=== PATIENT | female | born 1970 | race Caucasian/White ===

== ENCOUNTER 2025-01-10 09:09 | Outpatient (AMB) | payer SELFPAY ==
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
[2025-01-10 09:27] VITALS: BP 128/76; PULSE 58; O2SAT 99; BMI 31.8
--- OUTSIDE RECORDS SUMMARY | 2025-01-10 09:58 | XMS_ITS | Patient Health Record ---
Author Organization [facility] Address [address] [place] [address] Care Team Providers Care Impregnating Machine Operator Name Role Phone MEÑO GAYLE Primary Care Provider [phone] MinnaGordy moralescandido Unavailable [phone] NikolaiBarbara breweralissa Unavailable [phone] Allergies No Known Allergies Results Component Value Reference Range Notes Comp. Metabolic Panel [id number] Reviewed date:09/25/2024 07:40:29 AM Interpretation: Performing Lab:[facility], [address], Phone - [phone], Director - MDJodry Notes/Report: Glucose 86 70-99 mg/dL BUN 15 6-24 mg/dL Creatinine 0.71 0.57-1.00 mg/dL eGFR 102 >59 mL/min/1.73 BUN/Creatinine Ratio 21 9-23 Sodium 141 134-144 mmol/L Potassium 4.4 3.5-5.2 mmol/L Chloride 103 96-106 mmol/L Carbon Dioxide, Total 22 20-29 mmol/L Calcium 9.3 8.7-10.2 mg/dL Protein, Total 6.4 6.0-8.5 g/dL Albumin 4.5 3.8-4.9 g/dL Globulin, Total 1.9 1.5-4.5 g/dL Bilirubin, Total 0.3 0.0-1.2 mg/dL Alkaline Phosphatase 96 44-121 IU/L AST (SGOT) 15 0-40 IU/L Lipid Panel With LDL/HDL Rat [id number] Reviewed date:09/25/2024 07:40:20 AM Interpretation: Performing Lab:[facility], [address], Phone - [phone], Director - MDJodry Notes/Report: Cholesterol, Total 207 100-199 mg/dL Triglycerides 85 0-149 mg/dL HDL Cholesterol 53 >39 mg/dL VLDL Cholesterol Ehsan 15 5-40 mg/dL LDL Chol Calc ([facility]) 139 0-99 mg/dL LDL/HDL Ratio 2.6 0.0-3.2 ratio LDL/HDL Ratio Men Women 1/2 Avg.Risk 1.0 1.5 Avg.Risk 3.6 3.2 2X Avg.Risk 6.2 5.0 3X Avg.Risk 8.0 6.1 CBC with Diff, Platelet, NLR -[id number] Reviewed date:09/25/2024 07:40:00 AM Interpretation: Performing Lab:[facility], [address], [place], Phone - [phone], Director - Sabra Notes/Report: WBC 4.9 3.4-10.8 x10E3/uL RBC 4.67 3.77-5.28 x10E6/uL Hemoglobin 14.5 11.1-15.9 g/dL Hematocrit 46.2 34.0-46.6 % MCV 99 79-97 fL MCH 31.0 26.6-33.0 pg MCHC 31.4 31.5-35.7 g/dL RDW 13.6 11.7-15.4 % Platelets 284 150-450 x10E3/uL Neutrophils 57 Not Estab. % Lymphs 35 Not Estab. % Monocytes 5 Not Estab. % Eos 2 Not Estab. % Basos 1 Not Estab. % Neutrophils (Absolute) 2.7 1.4-7.0 x10E3/uL Lymphs (Absolute) 1.7 0.7-3.1 x10E3/uL Neut/Lymph Ratio 1.6 0.0-2.9 ratio Published COVID-19 studies suggest: Low likelihood of severe COVID-19 disease progression 0.0-2.9 High likelihood of severe COVID-19 disease progression >4.9 Monocytes(Absolute) 0.2 0.1-0.9 x10E3/uL Eos (Absolute) 0.1 0.0-0.4 x10E3/uL Baso (Absolute) 0.1 0.0-0.2 x10E3/uL Immature Granulocytes 0 Not Estab. % Immature Grans (Abs) 0.0 0.0-0.1 x10E3/uL Reason For Referral Reason screening colonoscop y Please evaluate and treat Diagnosis 1 Encounter for screen ing for malignant neoplasm of colon (Z12.11) Referral Organization [facility] Referring Provider First Name Kervin Referring Provider Last Name Chitra Referring Provider Speciality Internal M edicine Referred Provider Specialty Gastroentero logy General Notes Please call the iman ent to schedule the appointment, Encounter created and SMS sent to the pt.Elliot Charmain 09/15/2024 07:40:53 AM > Referral Priority Routine Medications Medication SIG (Take, Route, Fr equency, Duration) Notes Start Date End Date Status LORazepam 0.5 MG 1 tablet at bedtime as needed Orally Once a day; Duration: 90 days As needed 10/05/2024 Active Immunizations Vaccine Route Administration Date Status Comme nts COVID Christiane Unknown 09/15/2020 Administered COVID Moderna Unknown 01/29/2021 Administered Shingrix IM Intramuscular 10/05/2024 Administered Td (adult), absorbed Unknown 12/02/2020 Administered TDAP Unknown 05/03/2023 Administered Social History Tobacco Use: Social History Observation Description Date Details (start date - stop date) Never Smoker NA - NA Tobacco Control (Standard) Question Answer Notes Tobacco use: Nonsmoker AUDIT-C (Standard) Question Answer Notes Did you have a drink containing alcohol in the p ast year? No Points 0 Interpretation Negative Section Notes: she is now she lives with her significant other she does not smoke or drink she works at [employer]. She exercises 3-4 times in the gym. she is now she lives with her significant other she does not smoke or drink she works at [employer]. She exercises 3-4 times in the gym. Problems Problem Type SNOMED Code ICD Code Onset Dates Problem Status W/U Status Risk Notes Problem Generalized anxiety disorder (26030497) Generalized anxiety disorder (F41.1) Active confirmed Vital Signs Heart Rate 65 /min 10/05/2024 Temperature 96.7 degrees Fahrenheit 10/05/2024 Oximetry 99 % 10/05/2024 Blood pressure diastolic 70 mm Hg 09/13/2024 Height 5'6'' in 10/05/2024 Blood pressure systolic 100 mm Hg 09/13/2024 Weight 197.4 lbs 10/05/2024 BMI 31.86 kg/m2 10/05/2024 Encounters Encounter Location Date Provider Diagnosis [facility] [address] [place] [address] 09/15/2024 MEÑO GAYLE [facility] [address] [place] [address] 10/05/2024 Eunice Peguero Encounter for screen ing for cardiovascular disorders Z13.6 ; Annual visit for general adult medical examination without abnormal findings Z00.00 ; Generalized anxiety disorder F41.1 ; Pain in unspecified knee M25.569 and Encounter for immunization Z23 [facility] [address] [place] [address] 09/13/2024 Kervin Buenrostro Encounter for screen ing for cardiovascular disorders Z13.6 Assessments Encounter Date Diagnosis (ICD Code) Assessment Notes Treatment Notes Treatment Clinical Notes Section Notes 09/13/2024 Encounter for screening for cardiovascular disorders (ICD-10 - Z13.6) 54-year-old with no past medical history he is here today for a new PCP visit plan is following Hypertension screening blood pressure is stable 100/70 , will check a basic metabolic panel Hyperlipidemia' s screening check a lipid profile Anxiety and depression she denies any symptoms of anxiety or depression. Age specific preventive health screening Lab work slip has been given, colonoscopy referral made patient is current on mammogram and Pap smear 10/05/2024 Encounter for screening for cardiovascular disorders (ICD-10 - Z13.6) Merrick is a 54-year-old with no past medical history he is here today for annual Physical examination. plan is following Pain and unspecified knees. Physical examination is unremarkable with no effusion, erythema or edema. She does mention that she has family history of RA and years back she had autoimmune panel which showed elevated markers however not significant to be treated. We will repeat autoimmune panel including anti-CCP, Lyme and uric acid. Based on the results we will further manage and refer patient accordingly GIANCARLO. She does admit to anxiety however it is manageable with exercising, listening to music and reading. The first to be on SSRI or any scheduled daily medication for now. She has been on Lorazepam before which it did help with controlling anxiety and helping improve her sleep. I discussed with patient that this is a controlled substance med however will dispense it as to be taken sparingly but for any frequent refills then it is required to sign a controlled substance. She does voice understanding EKG is done in office today with a heart rate of 54 bpm, sinus rhythm. No ST elevation or depression no bundle branch block. Encounter for immunization. Shingles vaccine is given in office today. Colonoscopy she has a consultation coming up in December Mammogram. She is up-to-date She is up-to-date on a specific screenings and vaccinations [facility]. She is up-to-date Dermatology. She follows with [facility] blood work before next appointment General concerns have been discussed I have rendered the services for this patient under direct supervision of Dr. Gayle, who did not see the patient but was available upon request Content of this note has been dictated using voice recognition software. Despite multiple revisions, Errors may persist 10/05/2024 Annual visit for general adult medical examination without abnormal findings (ICD-10 - Z00.00) Merrick is a 54-year-old with no past medical history he is here today for annual Physical examination. plan is following Pain and unspecified knees. Physical examination is unremarkable with no effusion, erythema or edema. She does mention that she has family history of RA and years back she had autoimmune panel which showed elevated markers however not significant to be treated. We will repeat autoimmune panel including anti-CCP, Lyme and uric acid. Based on the results we will further manage and refer patient accordingly GIANCARLO. She does admit to anxiety however it is manageable with exercising, listening to music and reading. The first to be on SSRI or any scheduled daily medication for now. She has been on Lorazepam before which it did help with controlling anxiety and helping improve her sleep. I discussed with patient that this is a controlled substance med however will dispense it as to be taken sparingly but for any frequent refills then it is required to sign a controlled substance. She does voice understanding EKG is done in office today with a heart rate of 54 bpm, sinus rhythm. No ST elevation or depression no bundle branch block. Encounter for immunization. Shingles vaccine is given in office today. Colonoscopy she has a consultation coming up in December Mammogram. She is up-to-date She is up-to-date on a specific screenings and vaccinations [facility]. She is up-to-date Dermatology. She follows with [facility] blood work before next appointment General concerns have been discussed I have rendered the services for this patient under direct supervision of Dr. Gayle, who did not see the patient but was available upon request Content of this note has been dictated using voice recognition software. Despite multiple revisions, Errors may persist 10/05/2024 Generalized anxiety disorder (ICD-10 - F41.1) Merrick is a 54-year-old with no past medical history he is here today for annual Physical examination. plan is following Pain and unspecified knees. Physical examination is unremarkable with no effusion, erythema or edema. She does mention that she has family history of RA and years back she had autoimmune panel which showed elevated markers however not significant to be treated. We will repeat autoimmune panel including anti-CCP, Lyme and uric acid. Based on the results we will further manage and refer patient accordingly GIANCARLO. She does admit to anxiety however it is manageable with exercising, listening to music and reading. The first to be on SSRI or any scheduled daily medication for now. She has been on Lorazepam before which it did help with controlling anxiety and helping improve her sleep. I discussed with patient that this is a controlled substance med however will dispense it as to be taken sparingly but for any frequent refills then it is required to sign a controlled substance. She does voice understanding EKG is done in office today with a heart rate of 54 bpm, sinus rhythm. No ST elevation or depression no bundle branch block. Encounter for immunization. Shingles vaccine is given in office today. Colonoscopy she has a consultation coming up in December Mammogram. She is up-to-date She is up-to-date on a specific screenings and vaccinations [facility]. She is up-to-date Dermatology. She follows with [facility] Screening blood work before next appointment General concerns have been discussed I have rendered the services for this patient under direct supervision of Dr. Gayle, who did not see the patient but was available upon request Content of this note has been dictated using voice recognition software. Despite multiple revisions, Errors may persist 10/05/2024 Pain in unspecified knee (ICD-10 - M25.569) Merrick is a 54-year-old with no past medical history he is here today for annual Physical examination. plan is following Pain and unspecified knees. Physical examination is unremarkable with no effusion, erythema or edema. She does mention that she has family history of RA and years back she had autoimmune panel which showed elevated markers however not significant to be treated. We will repeat autoimmune panel including anti-CCP, Lyme and uric acid. Based on the results we will further manage and refer patient accordingly GIANCARLO. She does admit to anxiety however it is manageable with exercising, listening to music and reading. The first to be on SSRI or any scheduled daily medication for now. She has been on Lorazepam before which it did help with controlling anxiety and helping improve her sleep. I discussed with patient that this is a controlled substance med however will dispense it as to be taken sparingly but for any frequent refills then it is required to sign a controlled substance. She does voice understanding EKG is done in office today with a heart rate of 54 bpm, sinus rhythm. No ST elevation or depression no bundle branch block. Encounter for immunization. Shingles vaccine is given in office today. Colonoscopy she has a consultation coming up in December Mammogram. She is up-to-date She is up-to-date on a specific screenings and vaccinations [facility]. She is up-to-date Dermatology. She follows with [facility] Screening blood work before next appointment General concerns have been discussed I have rendered the services for this patient under direct supervision of Dr. Gayle, who did not see the patient but was available upon request Content of this note has been dictated using voice recognition software. Despite multiple revisions, Errors may persist 10/05/2024 Encounter for immunization (ICD-10 - Z23) Merrcik is a 54-year-old with no past medical history he is here today for annual Physical examination. plan is following Pain and unspecified knees. Physical examination is unremarkable with no effusion, erythema or edema. She does mention that she has family history of RA and years back she had autoimmune panel which showed elevated markers however not significant to be treated. We will repeat autoimmune panel including anti-CCP, Lyme and uric acid. Based on the results we will further manage and refer patient accordingly GIANCARLO. She does admit to anxiety however it is manageable with exercising, listening to music and reading. The first to be on SSRI or any scheduled daily medication for now. She has been on Lorazepam before which it did help with controlling anxiety and helping improve her sleep. I discussed with patient that this is a controlled substance med however will dispense it as to be taken sparingly but for any frequent refills then it is required to sign a controlled substance. She does voice understanding EKG is done in office today with a heart rate of 54 bpm, sinus rhythm. No ST elevation or depression no bundle branch block. Encounter for immunization. Shingles vaccine is given in office today. Colonoscopy she has a consultation coming up in December Mammogram. She is up-to-date She is up-to-date on a specific screenings and vaccinations [facility]. She is up-to-date Dermatology. She follows with [facility]ening blood work before next appointment General concerns have been discussed I have rendered the services for this patient under direct supervision of Dr. Gayle, who did not see the patient but was available upon request Content of this note has been dictated using voice recognition software. Despite multiple revisions, Errors may persist Plan Of Treatment Pending Test Test Name Order Date Uric Acid-[id number] 10/05/2024 Iron and TIBC-[id number] 10/05/2024 Ferritin-[id number] 10/05/2024 CBC with Diff, Platelet, [id number] 09/[address]-[id number] Rheumatoid Factor (RF)-[id number] 10/05/2024 C-Reactive Protein, Quant-[id number] Vitamin D, 69-[id number] 10/05/2024 Lyme (B. burgdorferi) [id number] TSH+Free [id number] 10/05/2024 Lipid Panel-[id number] 10/05/2024 Comp. Metabolic Panel [id number] Anti-CCP Ab, IgG + IgA (RDL)-[id number] 09/16 MARY 12 Plus Profile (RDL)-[id number] Next Appt Details Provider Name:Edwarlashay Michell morales, 10/09/2025 08:30:00 AM, [address] [place] [address], [phone], Insurance Providers Payer Name Payer Address Payer Phone Subscriber Number Group Number Insured Name Patient Relationship to Insured Coverage Start Date Coverage End Date [facility] [address] [place] [address] [id number] Merrick Krishnan Self - patient is the insured Medical (General) History Medical History History ICD Code none Surgical History Surgery Date(Month/Year) none
== END 2025-01-10 09:59 | disposition home or self-care (01) ==
PROVIDERS: PCP Internal Medicine; Visit Provider Nurse Practitioner Family
DX: Z01.818 Encounter for other preprocedural examination (principal); Z12.11 Encounter for screening for malignant neoplasm of colon; Z80.0 Family history of malignant neoplasm of digestive organs
CPT/HCPCS: 99203

== ENCOUNTER → 2025-01-10 09:09 | Outpatient (BNVA) | payer OTHER, SELFPAY | PROVIDERS: PCP Internal Medicine; Visit Provider Nurse Practitioner Family | DX: Z12.11 Encounter for screening for malignant neoplasm of colon (principal); Z94.5 Skin transplant status | CPT/HCPCS: 99202 ==